=== PATIENT | male | born 1930 | race Caucasian/White ===

== ENCOUNTER 2017-09-09 09:46 | Outpatient (CLI) | payer MEDICARE ==
[2017-09-09 18:02] LABS: CHOL/HDL RATIO 2.6 (<5.0); CHOLESTEROL 167 mg/dL; HDL CHOLESTEROL 64 mg/dL; TRIGLYCERIDES 38 mg/dL
[2017-09-09 18:39] LABS: LDL CHOLESTEROL,DIRECT 97 mg/dL
== END 2017-09-09 09:47 | disposition home or self-care (01) ==
LOC: LAB.F 09:46
PROVIDERS: ATTEND Family Medicine
DX: Z12.5 Encounter for screening for malignant neoplasm of prostate (principal); Z13.220 Encounter for screening for lipoid disorders
CPT/HCPCS: 36415; 80061; 83721; G0103; 84153